=== PATIENT | female | born 1950 | race Hispanic/Latino ===

== ENCOUNTER 2016-07-08 10:12 | Outpatient (CLI) | payer MEDICARE ==
--- NOTE | 2016-07-08 11:35 | Cat Scan Report ---
CT scan of abdomen and pelvis without IV contrast: History: Kidney stone. Findings: Normal liver spleen pancreas and gallbladder. Normal adrenals and kidney parenchyma. No calculi. Normal ureters and bladder. No free intraperitoneal fluid or air. No evidence of adenopathy. Atherosclerotic abdominal aorta. Few scattered diverticula sigmoid. No evidence of diverticulitis or appendicitis. No bowel distention. Impression: No kidney calculi. No hydronephrosis. Diverticulosis sigmoid colon.
== END 2016-07-08 10:13 | disposition home or self-care (01) ==
LOC: SPVIMAG 10:12
PROVIDERS: ATTEND Urology
DX: K57.30 Diverticulosis of large intestine without perforation or abscess without bleeding (principal); I70.0 Atherosclerosis of aorta; Z87.442 Personal history of urinary calculi
CPT/HCPCS: 74176

== ENCOUNTER 2017-01-25 10:21 | Outpatient (CLI) | payer MEDICARE ==
--- NOTE | 2017-01-25 13:09 | XRay Report ---
KUB: 01/25/17 CLINICAL: Venous insufficiency and bilateral iliac vein stents. COMPARISON: 01/25/16 FINDINGS: Bilateral iliofemoral venous stents are unchanged in position and appear to be satisfactory. Normal gas pattern. Left upper quadrant calcifications are unchanged and CT have been demonstrated to be in the splenic artery rather than the left kidney. Dextroscoliosis and degenerative changes in the spine. IMPRESSION: No change. Bilateral iliofemoral venous stents. Splenic artery calcifications.
== END 2017-01-25 10:22 | disposition home or self-care (01) ==
LOC: SPVIMAG 10:21
PROVIDERS: ATTEND Surgery Vascular Surgery
DX: I87.2 Venous insufficiency (chronic) (peripheral) (principal); I70.8 Atherosclerosis of other arteries; I70.213 Atherosclerosis of native arteries of extremities with intermittent claudication, bilateral legs; I10 Essential (primary) hypertension; J45.998 Other asthma; M47.899 Other spondylosis, site unspecified; I65.29 Occlusion and stenosis of unspecified carotid artery; E78.5 Hyperlipidemia, unspecified; F41.9 Anxiety disorder, unspecified
CPT/HCPCS: 74000

== ENCOUNTER 2017-05-05 08:34 | Outpatient (CLI) | payer MEDICARE ==
--- NOTE | 2017-05-05 14:37 | Mammography Report ---
BILATERAL DIGITAL SCREENING MAMMOGRAM with CAD: 05/05/17 08:34:00 CLINICAL: Routine screening. COMPARISON:None. She doesn't remember where she previously had a mammogram. FINDINGS: The breasts are mostly fatty.A left upper outer parenchymal asymmetry with architectural distortion and calcifications requires additional imaging. The right breast is negative. IMPRESSION: Left asymmetry with calcifications requiring further workup. BI-RADS CATEGORY: 0 -- Additional Imaging Evaluation Required RECOMMENDATION: Recall for left mediolateral , spot magnification CC and ML views and left breast ultrasound. ACR BI-RADS MAMMOGRAPHIC CODES: 0 = Needs additional imaging evaluation; 1 = Negative; 2 = Benign; 3 = Probably benign; 4 = Suspicious; 5 = Malignant; 6 = Known biopsy-proven malignancy COMMENT: 1. Dense breast tissue, i.e., adenosis, fibrocystic changes, etc., may obscure an underlying neoplasm. 2. Approximately 10% of cancers are not detected with mammography. 3. A negative mammography report should not delay biopsy if a clinically suspicious mass is present. COMMENT: Patient follow-up letters are generated via our [employer] application.
== END 2017-05-05 08:35 | disposition home or self-care (01) ==
LOC: SPVWC 08:34
PROVIDERS: ATTEND Family Medicine
DX: Z12.31 Encounter for screening mammogram for malignant neoplasm of breast (principal); I10 Essential (primary) hypertension; J45.909 Unspecified asthma, uncomplicated
CPT/HCPCS: 77067

== ENCOUNTER 2017-05-17 09:42 | Outpatient (CLI) | payer MEDICARE ==
--- NOTE | 2017-05-17 12:03 | Ultrasound Report ---
Left mammogram and left breast ultrasound: Patient recalled for suspicious left breast asymmetry in the upper-outer breast. Spot magnification views obtained. There is an approximately 3 cm stellate mass with central pleomorphic calcifications. Ultrasound over the area of concern located in the 2:00 position 10 cm from nipple demonstrates an irregular shaped hypoechoic mass with loss of distal echoes. It has a width of 2.8 cm and a height of approximately 2.4 cm. Imaging of the axilla demonstrates a benign appearing lymph node measuring 15 mm. Impression: Lesion suspicious for malignancy. Recommendation: Ultrasound-guided biopsy. The findings and recommendations have been discussed with the patient. BI-RADS CATEGORY: 5 = Malignant ACR BI-RADS MAMMOGRAPHIC CODES: 0 = Needs additional imaging evaluation; 1 = Negative; 2 = Benign; 3 = Probably benign; 4 = Suspicious; 5 = Malignant; 6 = Known biopsy-proven malignancy COMMENT: 1. Dense breast tissue, i.e., adenosis, fibrocystic changes, etc., may obscure an underlying neoplasm. 2. Approximately 10% of cancers are not detected with mammography. 3. A negative mammography report should not delay biopsy if a clinically suspicious mass is present. She are
== END 2017-05-17 09:43 | disposition home or self-care (01) ==
LOC: SPVWC 09:42
PROVIDERS: ATTEND Family Medicine
DX: N64.89 Other specified disorders of breast (principal); R92.1 Mammographic calcification found on diagnostic imaging of breast

== ENCOUNTER 2017-05-24 12:53 | Outpatient (CLI) | payer MEDICARE ==
--- NOTE | 2017-05-24 14:10 | Mammography Report ---
LEFT DIGITAL DIAGNOSTIC MAMMOGRAM: 05/24/17 12:53:00 CLINICAL: For clip placement immediately status post ultrasound biopsy. COMPARISON:05/17/17 FINDINGS: A biopsy clip is now identified within the spiculated mass in the upper outer breast. IMPRESSION: Concordant clip placement status post ultrasound biopsy. BI-RADS CATEGORY: 5 - - Highly Suggestive of Malignancy Pathology pending.
--- NOTE | 2017-05-24 14:27 | Ultrasound Report ---
ULTRASOUND GUIDED NEEDLE CORE BIOPSY LEFT BREAST WITH CLIP PLACEMENT: 05/24/17 13:00:00 CLINICAL: Highly suspicious left breast mass at 2 o'clock. COMPARISON :05/17/17 FINDINGS: The procedure was explained to the patient and informed consent was obtained. Ultrasound demonstrated the previously described solid hypoechoic irregular mass at 2 o'clock 10 cm from the nipple.. I marked the breast with a felt tip marker and a time out was called. The skin was prepped with Betadine and anesthetized with 1% lidocaine. Needle core biopsy was performed through a tiny dermatotomy using ultrasound guidance, 2% lidocaine with epinephrine for deep anesthesia and a 14-gauge Achieve biopsy device. 4 cores were obtained and placed in formalin. A clip was deployed within the mass. The patient tolerated the procedure well and there were no apparent complications. Hemostasis was achieved with minimal pressure and a sterile dressing was applied. A two view mammogram demonstrated satisfactory placement of the clip. She left the department in good condition and was given instructions for wound care and followup. IMPRESSION: Uncomplicated ultrasound guided needle core biopsy with clip placement left breast.
== END 2017-05-24 12:54 | disposition home or self-care (01) ==
LOC: SPVWC 12:53
PROVIDERS: ATTEND Family Medicine
DX: C50.412 Malignant neoplasm of upper-outer quadrant of left female breast (principal)
CPT/HCPCS: 19083; 77065; 88305; 88342; 88361; A4648